=== PATIENT | male | born 1955 | race Two or more races ===

== ENCOUNTER → 2017-05-02 | Outpatient (CLI) | payer MEDICAID ==
[~2017-05-02] MED LIST: AMLO10TA2 PO; CHOL1CAP6 PO; CINN500C13 PO; DOXA1TAB34 PO; GABA300C5 PO; GLIP10TA67 PO; HYDR12.57 PO; LEVEMIR SQ; LEVO50TA4 PO; LISI40TA PO; META48.53 PO; METO100T PO; SIMV20TA PO; TAMS0.4C4 PO; TRAD5TAB PO; VITA500T83 PO; [UNRECOGNIZED DRUG - CODE] PO
[2017-05-02 14:17] LABS: AUTOMATED NEUTROPHIL # 4.9 TH/MM3 (1.8-7.7); BASOPHIL # 0.1 TH/MM3 (0-0.2); BASOPHIL % 0.9 % (0.0-2.0); EOSINOPHIL # 0.4 TH/MM3 (0-0.4); EOSINOPHIL % 5.1 % (0.0-4.0); HEMATOCRIT 31.8 % (39.0-51.0); HEMO FLAGS DIFF FINAL; LYMPHOCYTE # 1.3 TH/MM3 (1.0-4.8); MEAN CELL VOLUME 84.6 FL (80.0-100.0); MEAN CORPUSCULAR HEMOGLOBIN 28.5 PG (27.0-34.0); MEAN CORPUSCULAR HGB CONC 33.7 % (32.0-36.0); MONO % 6.8 % (0.0-8.0); NEUT % 69.2 % (16.0-70.0); PLATELET COUNT 161 TH/MM3 (150-450); RED BLOOD COUNT 3.76 MIL/MM3 (4.50-5.90); RED CELL DISTRIBUTION WIDTH 14.2 % (11.6-17.2); WHITE BLOOD COUNT 7.1 TH/MM3 (4.0-11.0)
[2017-05-02 14:52] LABS: BICARBONATE 27.9 MEQ/L (21.0-32.0); POTASSIUM 4.1 MEQ/L (3.5-5.1)
--- NOTE | 2017-05-02 15:03 | RADRPT ---
EXAM DATE/TIME: 05/02/2017 14:50 [place] COMPARISON: No previous studies available for comparison. INDICATIONS : Evaluate for pneumonia, pneumothorax, or other communicable disease. Pre-op AV Fistula. MEDICAL HISTORY : Hypertension. Diabetes mellitus type II. Hypercholesterolemia. SURGICAL HISTORY : None. ENCOUNTER: Initial ACUITY: 1 day PAIN SCORE: 0/10 LOCATION: Bilateral chest FINDINGS: PA and lateral views of the chest demonstrate the lungs to be symmetrically aerated without evidence of mass, infiltrate or effusion. The cardiomediastinal contours are unremarkable. Osseous structure s are intact. CONCLUSION: No acute disease. David Marie MD FACR on May 02, 2017 at 15:01 Board Certified Radiologist. This report was verified electronically.
--- NOTE | 2017-05-02 18:37 | EKG ---
Date Performed: 05/02/2017 Time Performed: 14:14:22 PTAGE: 61 years EKG: SINUS BRADYCARDIA NONSPECIFIC T-WAVE ABNORMALITY BORDERLINE ECG NO PREVIOUS TRACING DOCTOR: Blayne Sadler Interpretating Date/Time 05/02/2017 18:35:58
== END ==
LOC: CPRE 13:47
PROVIDERS: ATTEND Surgery
DX: Z01.812 Encounter for preprocedural laboratory examination (principal); Z01.811 Encounter for preprocedural respiratory examination; Z01.810 Encounter for preprocedural cardiovascular examination; N18.6 End stage renal disease; R94.31 Abnormal electrocardiogram [ECG] [EKG]
CPT/HCPCS: 36415; 71020; 80048; 85025; 93005

== ENCOUNTER → 2017-05-06 | Day surgery (SDC) | payer MEDICAID ==
[~2017-05-06] VITALS: Ht 162.6 cm; Wt 78.9 kg
[~2017-05-06] MED LIST changes: +BUPIVACAINE/EPINEPHRINE 0.25% 50 ML VIAL ONE; +CHLORHEXIDINE GLUCONATE 2 % 1 PACK (2 CLOTHS) TOPICAL PRN; +DO NOT ADM ANY ANTICOAGULANT DRUGS PRN; +GELFOAM SIZE 100 ONE; +HEPARIN SODIUM - IV 10,000 UNITS/10 ML VIAL ONE; +HEPARIN SODIUM - SQ 10,000 UNITS/ML VIAL ONE; +INSULIN HUMAN REGULAR 1,000 UNITS/10 ML VIAL SQ PRN; +LACTATED RINGER'S 1000 ML INJ 1,000 ML IV ONE; +LACTATED RINGER'S 1000 ML IV PRN; +MAGNESIUM SULFATE 1 GM/100 ML IV PRN; +METOPROLOL TARTRATE 25 MG TAB PO PRN; +MIDAZOLAM HCL 2 MG/2 ML VIAL IV ONE; +NEOSTIGMINE 3 MG/3 ML SYR IV ONE; +ONDANSETRON HCL 4 MG/2 ML VIAL IV PUSH ONE; +ONDANSETRON HCL 4 MG/2 ML VIAL IV PUSH PRN; +PHENYLEPHRINE HCL 10 MG/ML VIAL IV ONE; +POTASSIUM CHLOR 20 MEQ 100 ML x 2 BAGS IV PRN; +POTASSIUM CHLOR 20 MEQ/100 ML x 1 BAG IV PRN; +POTASSIUM PHOSPHATE 21 MMOL/NS 250 ML IV PRN; +POVIDONE IODINE 5% (ANTISEPSIS KIT) 4 APPLICATIONS EACH NARE PRN; +PROPOFOL 200 MG/20 ML AMP IV ONE; +PROTAMINE SULFATE 50 MG/5 ML VIAL ONE; +SODIUM CHLORID 0.9% 500 ML IV PRN; +SODIUM CHLORIDE 0.9% FLUSH 10 ML FLUSH IV FLUSH PRN; +SODIUM CHLORIDE 0.9% FLUSH 10 ML FLUSH IV FLUSH SCH; +THROMBIN (TOPICAL) 20,000 UNIT SPRAY KIT ONE; +VANCOMYCIN 500 MG VIAL ONE; +ceFAZolin INJ 1,000 MG VIAL IV ONE; +ePHEDrine/NS 25 MG/5 ML SYR IV ONE
[2017-05-06 11:30] VITALS: BP 123/66; PULSE 62; RESP 18; TEMP 97.4; O2SAT 96
--- NOTE | 2017-05-07 08:31 | MP ---
cc: STEVEN CHAND DATE OF SURGERY 05/06/2017 PREOPERATIVE DIAGNOSIS Stage IV kidney disease. POSTOPERATIVE DIAGNOSIS Stage IV kidney disease. PROCEDURES Right upper extremity brachiocephalic A-V fistula. ATTENDING SURGEON Steven Chand DO OPHTHALMIC LENS INSPECTOR Joshua Acuña SEDATION LMA with 10 cc of 0.25% Marcaine with epinephrine. IV FLUIDS 500 cc. ESTIMATED BLOOD LOSS Minimal. URINE OUTPUT Not calculated. COMPLICATIONS None. DISPOSITION To PACU. PROCEDURE The patient's right upper extremity was prepped and draped in a sterile fashion after being under anesthesia. I did give the patient perioperative IV antibiotics in the way of Ancef. I made an incision across the medial aspect of the right antecubital fossa vertically that was about 4 cm in length. I used a scalpel and electrocautery to dissect it down to the level of the brachial artery and mobilized a portion of the brachial artery just above the level of the antecubital fossa. I then mobilized the area of cephalic vein, tied off side branches with 2-0 silks and small clips as needed. I used medium clips to divide the vein distally. I did give the patient 3000 units of heparin. I then divided the vein and fashioned it in a henok appearance. I then performed an arteriotomy after getting control proximal and distally with pediatric profunda clamps. I used an 11-blade and micro Fox scissors for my arteriotomy and then performed an end-to-side anastomosis with 6-0 Prolene on a medium 1. After I performed my anastomosis there is a nice thrill in the vessel in the outflow vein and there was a palpable radial pulse distally. I did use approximately 10 cc of 0.25% Marcaine with epinephrine in order to anesthetize the subcutaneous tissue. I did use Surgicel and Dori for help with hemostasis. I closed in layers with a 2-0 and then 4-0 Monocryl sutures. I used Dermabond over the skin. The patient tolerated the procedure well. DO CHAPO Mccoy/BRENDA /9:37 AM /8:17 AM
== END | disposition home or self-care (01) ==
LOC: HSDC 05:55
PROVIDERS: ATTEND Surgery
DX: I12.9 Hypertensive chronic kidney disease with stage 1 through stage 4 chronic kidney disease, or unspecified chronic kidney disease (principal); E11.22 Type 2 diabetes mellitus with diabetic chronic kidney disease; N18.4 Chronic kidney disease, stage 4 (severe); E78.00 Pure hypercholesterolemia, unspecified; H40.9 Unspecified glaucoma; E66.9 Obesity, unspecified; Z68.29 Body mass index [BMI] 29.0-29.9, adult; Z87.891 Personal history of nicotine dependence; Z79.4 Long term (current) use of insulin; Z79.899 Other long term (current) drug therapy
CPT/HCPCS: 01780; 36818; 76937; 82948; J0690; J1644; J2250; J2370; J2405; J2710; J2720; J3010; J7040; J7120; J3370